=== PATIENT | female | born 1940 | race Caucasian/White ===

== ENCOUNTER → 2018-05-11 | Outpatient (CLI) | payer MEDICARE, OTHER ==
--- NOTE | 2018-05-12 10:18 | ECHOF ---
Referral Reason:R01.1 CARDIAC MURMUR MEASUREMENTS -------- HEIGHT: 152.4 cm WEIGHT: 62.1 kg BP: 153/69 RVIDd: 2.7 cm (< 3.3) IVSd: 1.5 cm (0.6 - 1.1) LVIDd: 3.7 cm (3.9 - 5.3) LVPWd: 1.4 cm (0.6 - 1.1) IVSs: 1.9 cm LVIDs: 2.1 cm LVPWs: 1.7 cm LA Diam: 2.9 cm (2.7 - 3.8) LAESV Index (A-L): 18.07 ml/m Ao Diam: 2.4 cm (2.0 - 3.7) AV Cusp: 1.3 cm (1.5 - 2.6) MV EXCURSION: 9.588 mm (> 18.000) MV EF SLOPE: 16 mm/s (70 - 150) EPSS: 0.2 cm MV E Sourav: 0.59 m/s MV DecT: 349 ms MV A Sourav: 0.97 m/s MV E/A Ratio: 0.61 AV maxP.58 mmHg AV meanP.46 mmHg AR PHT: 600 ms RAP: 5.00 mmHg RVSP: 40.38 mmHg FINDINGS -------- Sinus rhythm. This was a technically adequate study. The left ventricular size is normal. There is moderate concentric left ventricular hypertrophy. O verall left ventricular systolic function is normal with, an EF between 55 - 60 %. The right ventricle is normal in size. Normal LA size by volume 22+/-6 ml/m2. The right atrium is normal in size. There is mild to moderate aortic valve sclerosis. There is meje-cw-jfybjkyg aortic regurgitation. There is severe aortic stenosis present. Peak/mean gradient across the Aortic Valve is 88.58mmHg / 51.46mmHg. Mild mitral annular calcification present. Mild mitral regurgitation is present. Mild tricuspid regurgitation present. There is mild pulmonary hypertension. The right ventricular systolic pressure, as measured by Doppler, is 40.38mmHg. Trace/mild (physiologic) pulmonic regurgitation. The aortic root size is normal. Normal inferior vena cava with normal inspiratory collapse consistent with estimated right atrial pre ssure of 5 mmHg. There is no pericardial effusion. CONCLUSIONS -------- 1. Sinus rhythm. 2. This was a technically adequate study. 3. The left ventricular size is normal. 4. There is moderate concentric left ventricular hypertrophy. 5. Overall left ventricular systolic function is normal with, an EF between 55 - 60 %. 6. Normal LA size by volume 22+/-6 ml/m2. 7. There is mild to moderate aortic valve sclerosis. 8. There is [id number] aortic regurgitation. 9. There is severe aortic stenosis present. 10. Peak/mean gradient across the Aortic Valve is 88.58mmHg / 51.46mmHg. 11. Mild mitral annular calcification present. 12. Mild mitral regurgitation is present. 13. Mild tricuspid regurgitation present. 14. There is mild pulmonary hypertension. 15. Trace/mild (physiologic) pulmonic regurgitation. 16. The aortic root size is normal. 17. Normal inferior vena cava with normal inspiratory collapse consistent with estimated right atrial pressure of 5 mmHg. 18. There is no pericardial effusion. STORE HAND: Trudy Nichole RDCS
== END | disposition home or self-care (01) ==
LOC: RADECHMAIN 14:20
PROVIDERS: ATTEND Internal Medicine Critical Care Medicine
DX: I08.3 Combined rheumatic disorders of mitral, aortic and tricuspid valves (principal); I27.20 Pulmonary hypertension, unspecified
CPT/HCPCS: 93306

== ENCOUNTER → 2018-11-16 | Day surgery (SDC) | payer MEDICARE ==
[2018-11-12 16:45] VITALS: BMI 24.8
[~2018-11-16] MED LIST: ALBUTEROL NEBULIZED 2.5 MG/3 ML INHALATION PRN; ALPRAZolam 0.25 MG TAB PO PRN; ALPRAZolam 0.5 MG TAB PO PRN; ALPRAZolam 0.5 MG TAB PO SCH; ASPIRIN 325 MG TAB PO SCH; ASPIRIN 325 MG TAB PO STA; ATORVASTATIN 80 MG TAB PO ONE; BIMATOPROST LEFT EYE SCH; HEPARIN SODIUM 1,000 UN/ML (10ML VL) IV ONE; HEPARIN SODIUM 1,000 UN/ML (10ML VL) ONE; HYDROmorphone 2 MG/ML 1 ML SYRINGE IVP ONE; IOPAMIDOL-370 150ML BTL INJ ONE; LEVOTHYROXINE 75 MCG TAB PO SCH; LIDOCAINE 1% INJ 10MG/ML (10 ML MDV) SQ ONE; MECLIZINE 12.5 MG TAB PO PRN; MIDAZOLAM 2 MG/2 ML VIAL IVP ONE; NITROGLYCERIN SL TABS 0.4 MG TAB SUBLINGUAL PRN; NON-FORMULARY DRUG (Fluticasone/Vilanterol [Breo Ellipta 200-25 Mcg Inh] 1 INHALATION) INHALATION PRN; NON-FORMULARY DRUG (Metoprolol Tartrate [Lopressor] 100 MG) PO SCH; NON-FORMULARY DRUG (Trazodone Hcl [Trazodone Hcl] 150 MG) PO SCH; PRAVASTATIN SODIUM 20 MG TAB PO SCH; RX INFO: IV CONTRAST WAS GIVEN 1 EACH MISC MISCELLANE PRN; SODIUM CHLORIDE 0.9% 1,000 ML IV ONE; SODIUM CHLORIDE 0.9% 1,000 ML IV SCH; SODIUM CHLORIDE 0.9% 1,000 ML in EMPTY BAG 1 BAG IV ONE; VERAPAMIL 2.5 MG/ML 2 ML AMP ONE; VERAPAMIL SYRINGE (5 MG/10 ML) INTRAARTER ONE; fentaNYL (PF) 50 MCG/ML 2 ML AMP ONE
[2018-11-16 06:39] VITALS: RESP 18; TEMP 98
[2018-11-16 06:44] LABS: Basophils % (A) 0 %; Eosinophils # (A) 0.1 k/uL (0-0.7); Eosinophils % (A) 2 %; HCT 38.3 % (34.0-46.0); HGB 12.5 gm/dL (11.4-16.0); Lymphocytes # (A) 0.9 k/uL (1.0-4.8); Lymphocytes % (A) 16 %; MCH 30.4 pg (25.0-35.0); MCHC 32.7 g/dL (31.0-37.0); Mean Platelet Volume 7.4; Monocytes # (A) 0.5 k/uL (0-1.0); Monocytes % (A) 8 %; Neutrophils # (A) 4.4 k/uL (1.3-7.7); Neutrophils % (A) 73 %; Platelet Count 268 k/uL (150-450); RBC 4.12 m/uL (3.80-5.40); RDW 13.9 % (11.5-15.5)
[2018-11-16 06:53] LABS: Anion Gap 9 mmol/L; Blood Urea Nitrogen 12 mg/dL (7-17); Calcium 9.1 mg/dL (8.4-10.2); Carbon Dioxide 30 mmol/L (22-30); Chloride 100 mmol/L (98-107); Glucose 105 mg/dL (74-99); Potassium 3.5 mmol/L (3.5-5.1); Sodium 139 mmol/L (137-145)
[2018-11-16] MEDS: BENZOCAINE SPRAY 1 CAN MUCOUS MEM ONE ×2 (07:25→07:32)
[2018-11-16] MEDS: MIDAZOLAM 2 MG/2 ML VIAL IVP ONE ×2 (07:25→07:32)
[2018-11-16] MEDS: fentaNYL (PF) 50 MCG/ML 2 ML AMP IVP ONE ×2 (07:25→07:34)
--- NOTE | 2018-11-16 08:05 | ECHOT ---
TRANSESOPHAGEAL ECHOCARDIOGRAM INDICATION: Evaluation of aortic valve. After explaining the procedure to the patient, its risks and complication, her blood pressure, heart rate, O2 saturation was monitored. The throat was sprayed with Cetacaine. She received 1 mg intravenous Versed, 0.5 mcg intravenous fentanyl, the probe was introduced into the esophagus without difficulty images were obtained. Following that, the probe was removed. FINDINGS: Left atrial size is normal. Left atrial appendage is normal. Mitral valve revealed mild mitral anulus calcification. The aortic valve is tricuspid valve with severe fibrocalcific changes and reduced opening with a valve area of 0.8 cm2. The tricuspid valve appears to be normal. Descending thoracic aorta revealed mild to moderate atherosclerotic changes. No pericardial effusion was noted. Contrast bubble study revealed no evidence of shunting across the interatrial septum with Valsalva maneuver. Doppler pulse wave and color Doppler obtained and revealed a mild to moderate aortic regurgitation with a peak gradient of 93 mm mmHg and a mean of 63 mmHg across the aortic valve. There was mild to moderate mitral and mild tricuspid regurgitation with mild pulmonic regurgitation. There was no shunting by color Doppler study. CONCLUSION: 1. Normal left ventricular size and systolic function with left ventricular hypertrophy. 2. Severe aortic stenosis with a mean gradient of 63 mmHg and aortic valve area of 0.8 cm2 and mild to moderate aortic regurgitation. 3. Mild to moderate mitral regurgitation with mitral annular calcification. 4. Mild tricuspid regurgitation with mild pulmonary hypertension. 5. Mild pulmonic regurgitation. 6. Mild to moderate atherosclerotic changes of the descending thoracic aortic aorta. 7. No pericardial effusion was noted. No shunting across the interatrial septum. MMODL / IJN: [id number] /
[2018-11-16 09:14] LABS: O2 Sat Blood Gas 61.3 %
--- NOTE | 2018-11-16 10:08 | CC ---
CARDIAC CATHETERIZATION REPORT Mrs. Barfield is an 78-year-old female with known history of aortic stenosis, history of abdominal aortic aneurysm and chronic obstructive lung disease who has been complaining of progressive dyspnea on exertion. She was referred by Dr. Prajapati for further evaluation. In view of her finding and her presentation, recommendation was made regarding cardiac catheterization. The procedure as well as the risks and the complications were discussed with the patient who is in full understanding and agreement. PROCEDURE: The patient was brought to collaborating supervising physician in a fasting semi-sedated state after receiving fentanyl and Benadryl and achieving moderate conscious sedated state. Using Xylocaine anesthesia in the Seldinger technique, a 6-Anguillan sheath was introduced in the right radial artery. Following that, using a guidewire exchange technique, the venous sheath in the right cephalic vein was exchanged to a 6-Anguillan sheath. Following that, right heart catheterization was performed using [place] catheter. Multiple pressure and samples were obtained. Cardiac output by thermodilution was calculated. Following that, selective right and left coronary angiography was performed using 5-Anguillan 3.5 bend right and left Francine catheter. Multiple views of the coronary artery including hemiaxial views were obtained. Following that, catheter and sheath were removed. Hemostasis was obtained with deployment of a TR band and compression of the right brachial area. Of note the patient received 3000 units of intravenous heparin as well as an intra-arterial verapamil. There was no immediate complication. FINDINGS: HEMODYNAMICS: The cardiac output by thermodilution 3.3 L/minutes and by Alejandra 2.6 L/minute. Right atrial saturation 62%, pulmonary artery saturation 61%, arterial saturation 94%, pulmonary artery systolic pressure of 40 with a diastolic of 14 and a mean of 22 mmHg. Pulmonary capillary wedge pressure A-wave of 13, V-wave of 14 with a mean of 12 mmHg. Right ventricular systolic pressure of 42 with an end-diastolic of 6 mmHg. Right atrial A-wave of 5, V-wave of 3 with a mean of 3 mmHg. FLUOROSCOPY: There was severe calcification involving the ascending aorta as well as the aortic valve. LEFT MAIN: This is a short size vessel bifurcating left circumflex, left anterior descending artery. Left main coronary artery has no evidence of high-grade stenosis. LEFT ANTERIOR DESCENDING ARTERY: This is a large-sized vessel reaching toward the apex with a wraparound apex segment, tapers down in the distal third. The left anterior descending artery has a mild plaque of 10% in the mid segment without any evidence of high-grade stenosis. LEFT CIRCUMFLEX: This is an nondominant vessel giving rise to 2 obtuse marginal branches. The left circumflex as well as branches have no evidence of obstructive coronary artery disease. RIGHT CORONARY ARTERY: This is a large dominant vessel bifurcating distally PDA and posterolateral segment and branches. The right coronary artery as well as branches have no evidence of obstructive coronary artery disease. LEFT VENTRICULOGRAM: Left ventriculogram was not performed. CONCLUSION: 1. Calcified aortic valve and ascending aorta. 2. Minimal disease in the mid left anterior descending artery. RECOMMENDATION: In view of finding anatomy, I recommend proceeding with evaluation for a TAVR in regard to her severe symptomatic aortic stenosis. Those findings and recommendations were discussed with the patient and her family who are in full understanding and agreement. DURATION OF PROCEDURE: 34 minutes. MMODL / IJN: [id number] /
[2018-11-16 16:10] VITALS: BP 130/60; PULSE 52
== END | disposition home or self-care (01) ==
LOC: CATHCVL 05:56
PROVIDERS: ATTEND Internal Medicine Interventional Cardiology
DX: I08.3 Combined rheumatic disorders of mitral, aortic and tricuspid valves (principal); I27.20 Pulmonary hypertension, unspecified; I70.0 Atherosclerosis of aorta; I10 Essential (primary) hypertension; J44.9 Chronic obstructive pulmonary disease, unspecified; E78.2 Mixed hyperlipidemia; I73.9 Peripheral vascular disease, unspecified; I71.4 Abdominal aortic aneurysm, without rupture; F17.210 Nicotine dependence, cigarettes, uncomplicated; Z79.899 Other long term (current) drug therapy; Z79.82 Long term (current) use of aspirin; Z79.51 Long term (current) use of inhaled steroids; Z79.890 Hormone replacement therapy
CPT/HCPCS: 93456; 93312; 93325; 80048; 85018; 82810; 85025; C1769 ×3; C1751; C1894 ×2; J2250; J1170; J3010; J1644; J2001; Q9967; 93320

== ENCOUNTER → 2022-05-22 | Outpatient (CLI) | payer MEDICARE, OTHER ==
--- NOTE | 2022-05-22 11:19 | CT ---
EXAM: CT Right Lower Extremity Without Intravenous Contrast, Knee CLINICAL HISTORY: Knee pain after fall. TECHNIQUE: Axial computed tomography images of the right knee without intravenous contrast. CTDI is 16.60 mGy and DLP is 369.80 mGy-cm. This CT exam was performed using one or more of the following dose reduction techniques: automated exposure control, adjustment of the mA and/or kV according to patient size, and/or use of iterative reconstruction technique. COMPARISON: No relevant prior studies available. FINDINGS: Bones/joints: There is no evidence of acute fracture. No dislocation. No significant suprapatellar joint effusion. Soft tissues: Unremarkable. IMPRESSION: There is no evidence of acute fracture or dislocation.
== END | disposition home or self-care (01) ==
LOC: RADCTMAIN 07:58
PROVIDERS: ATTEND Orthopaedic Surgery
DX: M25.561 Pain in right knee (principal)